=== PATIENT | male | born 2000 | race Caucasian/White ===

== ENCOUNTER 2025-04-11 18:37 | Emergency (ER) | payer BC ==
[~2025-04-11] VITALS: Ht 180.3 cm; Wt 97.6 kg
[2025-04-11 18:57] VITALS: TEMP 37.1; O2SAT 100
[2025-04-11 19:25] LABS: BASOPHILS % 0.2 % (0.0-2.0); EOSINOPHILS % 0.8 % (0.0-5.0); HEMATOCRIT. 46.5 % (42.0-52.0); HEMOGLOBIN. 16.2 g/dL (14.0-18.0); LYMPHOCYTES % 15.1 % (20.0-50.0); MEAN CORPUSCULAR HEMOGLOBIN 32.2 pg (28.0-32.0); MEAN CORPUSCULAR HGB CONC 34.9 g/dL (31.0-37.0); MEAN CORPUSCULAR VOLUME 92.5 fL (80.0-94.0); MEAN PLATELET VOLUME 8.7 fl (7.4-10.4); MONOCYTES % 6.8 % (2.0-8.0); NEUTROPHILS % 77.1 % (40.0-76.0); PLATELET 249 x1000/uL (130-400); RED BLOOD CELL COUNT 5.03 mill/uL (4.7-6.1); RED CELL DISTRIBUTION WIDTH 13.1 % (11.6-14.6); WHITE BLOOD COUNT 10.4 x1000/uL (4.5-11.0)
[2025-04-11 19:32] LABS: CHLORIDE 109 mEq/L (98-107); POTASSIUM 3.3 mEq/L (3.5-5.1); SODIUM 143 mEq/L (136-145)
[2025-04-11 19:33] LABS: CARBON DIOXIDE 25 mEq/L (21-32)
[2025-04-11 19:34] LABS: CALCIUM 9.6 mg/dL (8.7-10.4)
[2025-04-11 19:38] LABS: GLUCOSE 109 mg/dL (70-105)
[2025-04-11 19:39] LABS: ETHANOL BLOOD < 10 mg/dL (<10); UREA NITROGEN BLOOD 6 mg/dL (9-23)
[2025-04-11 19:40] LABS: ALANINE AMINOTRANSFERASE 59 IU/L (10-49); ALBUMIN 5.1 g/dL (3.2-4.8); ASPARTATE AMINOTRANSFERASE 23 IU/L (<34)
[2025-04-11 19:41] LABS: BILIRUBIN DIRECT 0.2 mg/dL (<=3.0); BILIRUBIN TOTAL 0.6 mg/dL (0.1-1.0); PROTEIN TOTAL 7.9 g/dL (6.0-8.3)
[2025-04-11] MEDS: ONDANSETRON 4MG ODT PO ONE (20:11)
[2025-04-11] MEDS: MAGNESIUM/ALUMINUM HYDROXIDE/SIMETHICONE 30ML UDC PO ONE (20:11)
[2025-04-11] MEDS: FAMOTIDINE 20MG TABLET PO ONE (20:11)
[2025-04-11] MEDS ORDERED: MAG-55 MT (20:37)
[2025-04-11] MEDS ORDERED: FAMO-135 MT (20:37)
[2025-04-11 21:09] VITALS: BP 136/7; PULSE 83; RESP 16; O2SAT 99
[2025-04-11 21:52] LABS: CLARITY URINE CLOUDY (CLEAR); COLOR URINE YELLOW (YELLOW)
[2025-04-11 21:53] LABS: GLUCOSE URINE NEGATIVE (NEGATIVE); KETONES URINE TRACE (NEGATIVE); LEUKOCYTE ESTERASE URINE NEGATIVE (NEGATIVE); NITRITE URINE NEGATIVE (NEGATIVE); OCCULT BLOOD URINE NEGATIVE (NEGATIVE); PH URINE 5.5 (4.5-8.0); PROTEIN URINE 2+ (NEGATIVE); SPECIFIC GRAVITY URINE 1.022 (1.005-1.030)
[2025-04-11 22:05] LABS: BACTERIA URINE 1+; RBC URINE NONE SEEN /hpf (0-2); SQUAMOUS EPITHELIAL CELL URINE FEW /lpf (RARE/1+); WBC URINE 0-2 /hpf (0-2)
== END 2025-04-11 21:41 | disposition home or self-care (01) ==
LOC: ER 18:37
DX: G89.29 Other chronic pain (principal); R10.13 Epigastric pain
CPT/HCPCS: 80076; 80048; 81003; 80320; 83690; 85025; 36415; 99284; Q0162; G0480